=== PATIENT | female | born 1975 | race American Indian/Alaskan Native ===

== ENCOUNTER 2018-10-13 13:51 | Emergency (ER) | payer OTHER ==
[2018-10-13 14:03] VITALS: RESP 18; TEMP 98.5
[2018-10-13] MEDS ORDERED: Sodium Chloride 0.9% 1,000 ML IV STA (14:14)
--- NOTE | 2018-10-13 14:14 | ED PDOC ---
Arrival/HPI - General Chief Complaint: Headache Time Seen by Provider: 10/13/18 13:58 Historian: Patient - History of Present Illness Narrative History of Present Illness (Text): 10/13/18 14:16 43 year old female with past medical history of hypertension, hypothyroidism, and a hysterectomy 3 years ago presents to emergency department with complaints of headache for the past 3 weeks with associated nausea and congestion. Patient describes her headache as slow, heavy, and high pressure to the sides of her head. She notes taking Tylenol and Advil for the past two weeks with no significant improvement. Patient states this past Monday, she visited her doctor who prescribed her tramadol. She notes that following using this, she developed nausea, shivers, loss of appetite, and two episodes of vomiting that night. Patient reports she then went back to her doctor's on Monday, where she was given bloodwork, urine test, and medication for nausea. Patient notes using Losartan for hypertension and currently reports trying to lose weight. Patient denies any drug use, fall or trauma, or history of migraines or headaches in the family. Patient denies any fevers, dizziness, chest pain, shortness of breath, cough, abdominal pain, back pain, neck pain, or any other complaints. PMD: Time/Duration: Other (3 weeks ) Symptom Onset: Gradual Symptom Course: Unchanged Activities at Onset: Light Context: Home Past Medical History - Provider Review Nursing Documentation Reviewed: Yes - Infectious Disease Hx of Infectious Diseases: None - Reproductive Menopause: No - Cardiac Hx Cardiac Disorders: Yes Hx Hypertension: Yes - Pulmonary Hx Respiratory Disorders: No - Endocrine/Metabolic Hx Hypothyroidism: Yes - Integumentary Hx Dermatological Disorder: No - Psychiatric Hx Substance Use: No - Anesthesia Hx Anesthesia Reactions: No Family/Social History - Physician Review Nursing Documentation Reviewed: Yes Family/Social History: Unknown Family HX Smoking Status: Unknown If Ever Smoked Hx Alcohol Use: No Hx Substance Use: No Allergies/Home Meds Allergies/Adverse Reactions: Allergies nuts Allergy (Uncoded 10/13/18 14:03) RASH Home Medications: Home Meds Medication Instructions Recorded Confirmed Levothyroxine [Levoxyl] 0 mg PO DAILY 10/13/18 10/13/18 Losartan [Cozaar] 0 mg PO DAILY 10/13/18 10/13/18 Review of Systems - Physician Review All systems were reviewed & negative as marked: Yes - Review of Systems Constitutional: absent: Fevers ENT: Sinus Congestion Respiratory: absent: SOB, Cough Cardiovascular: absent: Chest Pain Gastrointestinal: Nausea, Vomiting (2 episodes ), Appetite Changes (loss of appetite). absent: Abdominal Pain Genitourinary Female: absent: Frequency, Hematuria, Urine Output Changes Musculoskeletal: absent: Back Pain, Neck Pain Skin: absent: Rash Neurological: Headache (3 weeks, pressure to sides of head ) Physical Exam Vital Signs Reviewed: Yes Vital Signs Temp Pulse Resp BP Pulse Ox 10/13/18 13:58 98.5 F 75 18 139/72 98 Temperature: Afebrile Blood Pressure: Normal Pulse: Regular Respiratory Rate: Normal Appearance: Positive for: Well-Appearing, Non-Toxic, Comfortable Pain Distress: None Mental Status: Positive for: Alert and Oriented X 3 - Systems Exam Head: Present: Atraumatic, Normocephalic Pupils: Present: PERRL Extroacular Muscles: Present: EOMI Conjunctiva: Present: Normal Mouth: Present: Moist Mucous Membranes Neck: Present: Normal Range of Motion. No: Meningeal Signs, MIDLINE TENDERNESS, JVD, Lymphadenopathy Respiratory/Chest: Present: Clear to Auscultation, Good Air Exchange. No: Respiratory Distress, Accessory Muscle Use, Wheezes, Decreased Breath Sounds Cardiovascular: Present: Regular Rate and Rhythm, Normal S1, S2. No: Murmurs Abdomen: Present: Normal Bowel Sounds. No: Tenderness, Distention, Peritoneal Signs Back: Present: Normal Inspection. No: CVA Tenderness, Midline Tenderness Upper Extremity: Present: Normal Inspection. No: Cyanosis, Edema Lower Extremity: Present: Normal Inspection. No: Edema Neurological: Present: GCS=15, CN II-XII Intact, Speech Normal, Motor Func Grossly Intact, Normal Sensory Function, Normal Cerebellar Funct, Gait Normal Skin: Present: Warm, Dry, Normal Color. No: Rashes Psychiatric: Present: Alert, Oriented x 3, Normal Insight, Normal Concentration Medical Decision Making ED Course and Treatment: 10/13/18 14:35 Impression: 43 year old female presents to emergency for headache for the past 3 weeks with associated nausea. She denies any recent drug use, falls, or trauma. No sudden onset of headache, not worst of life. No FND. No current n/v. Normal neuro exam, well appearing in NAD. No sinus type pressure. Likely migraine LOPEZ given no sudden on set of LOPEZ, not worst of life, no FND. No meningeal signs. Pending imaging and labs. Plan: -- CT Head -- Labs -- Reglan -- IV Fluids -- Reassess and disposition Prior Visits: Notes and results from previous visits were reviewed. Progress Notes: 10/13/18 16:09 labs unremarkable, pending imaging. 10/13/18 16:47 CT Head, reviewed by radiologist: IMPRESSION: No acute intracranial pathology identified. imaging unremarkable pt in NAD neuro exam remains unremarkable Headache resolved, clear for d/c home with return indications and f/u, pt agr eeable to plan - Scribe Statement The provider has reviewed the documentation as recorded by the Scribe Kalpana Fay All medical record entries made by the Scribe were at my direction and personally dictated by me. I have reviewed the chart and agree that the record accurately reflects my personal performance of the history, physical exam, medical decision making, and the department course for this patient. I have also personally directed, reviewed, and agree with the discharge instructions and disposition. Disposition/Present on Arrival - Present on Arrival Any Indicators Present on Arrival: No History of DVT/PE: No History of Uncontrolled Diabetes: No Urinary Catheter: No History of Decub. Ulcer: No History Surgical Site Infection Following: None - Disposition Have Diagnosis and Disposition been Completed?: Yes Diagnosis: Migraine headache Disposition: HOME/ ROUTINE Disposition Time: 16:42 Patient Problems: Current Active Problems Problem Status Onset Migraine headache Acute Condition: STABLE Discharge Instructions (ExitCare): Migraine Headache (DC) Additional Instructions: AVRIL ARGUELLO, thank you for letting us take care of you today. Your provider was Genaro Hector and you were treated for headache / nausea. The emergency medical care you received today was directed at your acute symptoms. If you were prescribed any medication, please fill it and take as directed. It may take several days for your symptoms to resolve. Return to the Emergency Department if your symptoms worsen, do not improve, or if you have any other problems. Please contact your doctor or call one of the physicians/clinics you have been referred to that are listed on the Patient Visit Information form that is included in your discharge packet. Bring any paperwork you were given at discharge with you along with any medications you are taking to your follow up visit. Our treatment cannot replace ongoing medical care by a primary care provider outside of the emergency department. Thank you for allowing the [facility] team to be part of your care today. If you had an X-Ray or CT scan: A Radiologist will review the ED reading if any change in treatment is needed we will contact you. If you had a blood, urine, or wound culture: It will take several days for the results, if any change in treatment is needed we will contact you. If you had an STI test: It will take 48 hours for the results. Please call after 1 week if you have not heard back. Referrals: Bala Mike [Primary Care Provider] - Follow up with primary Ruddy Vega MD [Staff Provider] - Follow up with primary [facility] [Outside] - Follow up with primary [facility] [Outside] - Follow up with primary [facility] [Outside] - Follow up with primary Forms: [facility] ([place])
[2018-10-13 15:55] LABS: ALB/GLOB RATIO 1.3 (1.1-1.8); ALBUMIN 4.6 g/dL (3.0-4.8); ALT/SGPT 21 U/L (7-56); AST/SGOT 32 U/L (14-36); BLOOD UREA NITROGEN 11 mg/dL (7-21); CALCIUM 10.1 mg/dL (8.4-10.5); GFR NON-AFRICAN AMERICAN > 60
[2018-10-13 16:01] LABS: HEMOGLOBIN 14.4 g/dL (12.0-16.0); LYMPH # 1.7 (1.2-3.4); LYMPH % 37.8 % (22.0-35.0); MEAN CELL VOLUME 92.7 fl (80.0-105.0); MEAN CORPUSCULAR HEMOGLOBIN 32.1 pg (25.0-35.0); MEAN CORPUSCULAR HGB CONC 34.6 g/dl (31.0-37.0); MEAN PLATELET VOLUME 10.6 fl (7.0-11.0); MONO # 0.3 (0.1-0.6); MONO % 7.2 % (1.0-6.0); RBC 4.49 10^6/uL (3.5-6.1); RED CELL DISTRIBUTION WIDTH 11.9 % (11.5-14.5); WHITE BLOOD COUNT 4.4 10^3/uL (4.5-11.0)
[2018-10-13 16:25] VITALS: BP 121/64; PULSE 66; O2SAT 100
--- NOTE | 2018-10-13 16:36 | CT ---
Date of service: 10/13/2018 PROCEDURE: CT HEAD WITHOUT CONTRAST. HISTORY: schwartz, 3 weeks COMPARISON: None available. TECHNIQUE: Axial computed tomography images were obtained through the head/brain without intravenous contrast. Radiation dose: Total exam DLP = 975.16 mGy-cm. This CT exam was performed using one or more of the following dose reduction techniques: Automated exposure control, adjustment of the mA and/or kV according to patient size, and/or use of iterative reconstruction technique. FINDINGS: HEMORRHAGE: No intracranial hemorrhage. BRAIN: No mass effect or edema. Tan-white matter differentiation appears intact. Please note that MRI with diffusion imaging is more sensitive in the detection of acute ischemic event. VENTRICLES: No hydrocephalus. CALVARIUM: Unremarkable. PARANASAL SINUSES: Unremarkable as visualized. No significant inflammatory changes. MASTOID AIR CELLS: Unremarkable as visualized. No inflammatory changes. OTHER FINDINGS: None. IMPRESSION: No acute intracranial pathology identified.
== END 2018-10-13 17:04 | disposition home or self-care (01) ==
LOC: ED 13:51 → MERGE 13:51 → ED 17:04
DX: G43.909 Migraine, unspecified, not intractable, without status migrainosus (principal); I10 Essential (primary) hypertension; E03.9 Hypothyroidism, unspecified
CPT/HCPCS: 70450; 80053; 81025; 85025; 96361; 96374; 99285; J2765; J7030